=== PATIENT | male | born 1940 | race Caucasian/White ===

== ENCOUNTER 2021-11-27 17:09 | Outpatient (CLI) | payer SELFPAY | END 2021-11-27 17:10 | disposition home or self-care (01) | LOC: AMB 12-04 08:31 | PROVIDERS: Visit Provider Family Medicine | DX: R41.82 Altered mental status, unspecified (principal); R29.810 Facial weakness | CPT/HCPCS: A0425; A0427 ==

== ENCOUNTER 2021-11-27 17:31 | Emergency (ER) | payer SELFPAY ==
--- NOTE | 2021-11-27 17:36 | TELERAD_ITS ---
Patient: JIMENEZ SOLORZANO Facility:?[facility] R[facility] Patient ID:?[id number] Site Patient ID:?[id number] Site :?[id number] Study:?CT-Neck Angio Angio w/ 95cc [id number]-496-7/15/2022 6:01:23 PM Ordering Physician:Bear Devi Final Report: DATE: 11/27/2021 CLINICAL HISTORY: Patient with left-sided weakness. TECHNIQUE: Standard helical CT image acquisition of the neck up to the skull base after bolus intravenous contrast enhancement. Multiplanar reconstructed images performed on a separate workstation. COMPARISON: CT same day. FINDINGS: There is severe narrowing in the proximal left subclavian artery. The origins of the rest of the great vessels from the aortic arch are patent. The origin of the right vertebral artery demonstrates moderate narrowing. The origin of the left vertebral artery demonstrates severe narrowing. The common carotid arteries are patent. There is a severe (82%) stenosis at the origin of the right internal carotid artery by NASCET criteria. This is caused by calcified plaque with a 0.8 mm residual lumen. There is a critical (<95%) stenosis at the origin of the left internal carotid artery by NASCET criteria. This is caused by calcified plaque with a hairline residual lumen. The rest of the cervical segments of the internal carotid arteries are patent up to the skull base. The right vertebral artery is dominant. The cervical segments of the vertebral arteries demonstrate moderate to severe narrowing but are patent up to the skull base. The visualized lung apices are unremarkable. The thyroid gland is unremarkable. The soft tissues of the neck are unremarkable. There are degenerative changes in the cervical spine. IMPRESSION: 1. Critical (<95%) stenosis at the origin of the left internal carotid artery by NASCET criteria caused by calcified plaque with a hairline residual lumen. 2. Severe (82%) stenosis at the origin of the right internal carotid artery by NASCET criteria caused by calcified plaque with a 0.8 mm residual lumen. 3. Severe proximal left subclavian artery narrowing. 4. Severe left and moderate right vertebral artery origin stenosis. Please note that all CT scans at this facility use dose modulation, iterative reconstruction, and/or weight-based dosing when appropriate to reduce radiation dose to as low as reasonably achievable. Dictated by Nuzhat Beckett MD @ 11/27/2021 8:33:09 PM Signed by:?Nuzhat Beckett MD @11/27/2021 8:33:09 PM (Electronic Signature)
--- NOTE | 2021-11-27 17:36 | TELERAD_ITS ---
Patient: JIMENEZ SOLORZANO Facility:?[facility] Patient ID:?[id number] Site Patient ID:?[id number]. Site :?[id number] Study:?CT-Head Angio w/ 95cc [id number]/15/2022 6:01:51 PM Ordering Physician:Bear Devi Final Report: DATE: 11/27/2021 CLINICAL HISTORY: Patient with left-sided weakness. TECHNIQUE: Standard helical CT image acquisition through the intracranial circulation following intravenous administration of contrast material with bolus tracking. Multiplanar reconstructed images were performed and interpreted. COMPARISON: CT same day. FINDINGS: There is no cerebral aneurysm or large vessel occlusion. There is diffuse intracranial atherosclerosis with a moderate to severe stenosis in the left M1 segment, a moderate stenosis in the right vertebral artery and mild stenoses in the carotid siphons bilaterally. IMPRESSION: 1. No cerebral aneurysm or large vessel occlusion. 2. Diffuse intracranial atherosclerosis with a moderate to severe stenosis in the left M1 segment, a moderate stenosis in the right vertebral artery and mild stenoses in the carotid siphons bilaterally. Please note that all CT scans at this facility use dose modulation, iterative reconstruction, and/or weight-based dosing when appropriate to reduce radiation dose to as low as reasonably achievable. Dictated by Nuzhat Beckett MD @ 11/27/2021 8:36:36 PM Signed by:?Nuzhat Beckett MD @11/27/2021 8:36:36 PM (Electronic Signature)
--- NOTE | 2021-11-27 17:36 | CRLHL7_ITS ---
For Patients: As a result of the Century Cures Act, medical imaging exams and procedure reports are released immediately into your electronic medical record. You may view this report before your referring provider. If you have questions, please contact your health care provider. INDICATION: Stroke. Left-sided weakness. COMPARISON: None. TECHNIQUE: Noncontrast CT head. FINDINGS: Moderate generalized volume loss. Patchy low-attenuation change within the white matter consistent with chronic small vessel ischemic changes. 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 No acute intracranial hemorrhage, acute infarct, mass effect, or fracture. No midline shift. No abnormal ventricular dilatation. Normal calvarium skullbase. Visualized paranasal sinuses mastoid air cells are clear. Intracranial carotid artery calcifications. Visualized orbits are unremarkable. IMPRESSION: 1. No acute intracranial abnormality. 2. Moderate generalized volume loss. Chronic deep white matter small vessel ischemic changes. 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 Please note that all CT scans at this facility use dose modulation, iterative reconstruction, and/or weight-based dosing when appropriate to reduce radiation dose to as low as reasonably achievable. Dictated by Bijan Galeas MD @ 11/27/2021 6:07:43 PM (Electronically Signed)
[2021-11-27 18:01] VITALS: BP 121/49; PULSE 60; RESP 16; TEMP 36.2; O2SAT 92; BMI 24.4
[2021-11-27 18:02] LABS: Basophils Absolute Auto 0.02 K/uL (0.00-0.30); Basophils Percent Auto 0.2 % (0.0-3.0); Eosinophils Absolute Auto 0.18 K/uL (0.00-0.50); Eosinophils Percent Auto 2.2 % (0.0-7.0); Hematocrit 39.9 % (37.0-53.0); Hemoglobin* 12.9 gm/dL (13.5-17.5); Immature Granulocytes Abs Auto 0.04 K/uL (0.00-0.30); Lymphocytes Percent Auto 13.2 % (20-44); Mean Corpuscular HGB Conc 32 gm/dL (32-36); Mean Corpuscular Hemoglobin 30 pg (26-34); Mean Corpuscular Volume 94 fL (80-100); Monocytes Percent Auto 10.7 % (0.0-11.0); Neutrophils Percent Auto 73.2 % (42.0-72.0); Platelet Count* 154 K/uL (140-440); RDW Coefficient of Variation % 14.6 % (11.5-15.5); Red Blood Count 4.24 m/uL (4.30-5.90); White Blood Count* 8.26 K/uL (4.50-11.00)
[2021-11-27 18:03] LABS: Lactate* 1.4 mmol/L (0.5-1.9); Slide Review Reflex No
[2021-11-27 18:08] VITALS: PULSE 66
[2021-11-27 18:09] LABS: Troponin, Point-of-Care* 0.03 ng/ml (0.01-0.04)
[2021-11-27 18:18] LABS: Albumin* 3.2 g/dL (3.3-5.0); Chloride* 110 mmol/L (96-114)
[2021-11-27 18:19] LABS: Potassium* 3.6 mmol/L (3.6-5.1); Sodium* 136 mmol/L (135-149)
[2021-11-27 18:20] LABS: Creatinine* 1.5 mg/dL (0.5-1.5); Est. Creatinine Clearance* 40.96; Estimated Glomerular Filt Rate 46 ml/min
[2021-11-27 18:21] LABS: Alkaline Phosphatase* 75 U/L (40-150); Aspartate Amino Transferase* 27 U/L (12-35); Bilirubin Direct* 0.3 mg/dL (0.0-0.5); Bilirubin Total* 0.6 mg/dL (0.1-1.5); Blood Urea Nitrogen* 36 mg/dL (7-30); Carbon Dioxide* 20 mmol/L (20-32); Glucose* 165 mg/dL (60-115); Total Protein* 5.3 g/dL (6.0-8.3)
[2021-11-27 18:22] LABS: Alanine Aminotransferase* 33 U/L (4-50); Calcium* 8.1 mg/dL (8.4-10.6)
[2021-11-27 18:26] VITALS: BP 130/55; PULSE 60; RESP 16; O2SAT 93
[2021-11-27 18:27] LABS: Acetaminophen* < 10.0 ug/mL (10.0-30.0); Salicylate* < 1.0 mg/dL (1.0-10)
--- NOTE | 2021-11-27 18:27 | ED.NURSE ---
see stroke flow sheet for vital and neuro checks
[2021-11-27 18:39] LABS: PCR FLU A Negative PCR FLU A (Negative); PCR FLU B Negative PCR FLU B (Negative)
[2021-11-27 18:42] LABS: SARS PCR* Negative SARS-CoV-2 (Negative)
--- NOTE | 2021-11-27 18:47 | ED.GENADULT ---
HPI - General Adult General Chief complaint: Neuro Symptoms/Altered Deficit Stated complaint: Stroke Symptoms Time Seen by Provider: 11/27/21 17:34 History of Present Illness HPI narrative: 81-year-old male with a history of hypertension, alcohol use disorder, pacemaker placement comes in today after collapsing while he was outside. His last known well was at 5:00 p.m.. EMS found him shortly after collapsing in he was unable to move the right side of his body and was not conversing. Did speak to his daughter who stated that she talked to him yesterday and he was his normal self: He ambulates independently speaks without difficulty. No recent illness that she is aware of. She does state that he is a ?chain smoker?. Unsure of any recent alcohol use. Related Data Home Medications Medication Instructions Recorded Confirmed apixaban 2.5 mg tablet (Eliquis) 2.5 mg PO BID 11/27/21 11/27/21 atorvastatin 10 mg tablet mg 11/27/21 carvedilol 25 mg tablet mg 11/27/21 furosemide 40 mg tablet mg 11/27/21 Allergies Allergy/AdvReac Type Severity Reaction Status Date / Time Unable to Assess Allergy Unverified 11/27/21 18:07 Review of Systems Status of ROS: Reports: unobtainable due to mental status [facility] Medical History CAD (coronary artery disease) Hypertension Kidney failure Social History How often do you have a drink containing alcohol: never AUDIT-C Alcohol total score: 0 Non-prescribed substance use: denies use service: Yes Exam Narrative: Exam Narrative: Well-nourished well-developed patient who is awake. He cannot speak and only has jumbled sounds. Does not appear to be in any respiratory distress. He is able to follow some commands but not many. For example when asked to stick out his tongue he opens his mouth this tongue does not protrude out. When asked him to squeeze my hands he moves his left arm up and down but is not able to squeeze my finger his right arm does not move at all. When I ask him to move his legs neither leg moves. He does have an obvious facial droop with the right side of the mouth drooping. Which does appear to be some right-sided emerald-neglect: Patient is unable to focus on that side and does not comprehend when someone is standing on that side. He is able to look at you make eye contact when her standing on the other side. HEENT: Normocephalic atraumatic. Pupils are equally round reactive to light. Conjunctivae are moist without any icterus noted. Moist mucous membranes. Posterior pharynx is normal. Neck is soft without any lymphadenopathy or thyromegaly. No masses are appreciated. Cardiovascular: Heart is regular rate and rhythm S1 and S2 are present. Lungs: Clear to auscultation bilaterally no wheezes rhonchi or rales are appreciated. Abdomen: Soft and nontender nondistended with normal bowel sounds. Extremities: Bilateral lower extremities are without edema. Normal DP and PT pulses. Skin: Well perfused without any obvious rashes. Const: Vital Signs, click to edit/add: Vital Signs - 24 hr 11/27/21 18:01 11/27/21 18:08 11/27/21 18:26 Temperature 97.2 F L Pulse Rate [Left P ulse Oximeter] 60 66 60 Respiratory Rate 16 16 Blood Pressure [Ri ght Upper Arm] 121/49 L 130/55 L Pulse Oximetry 92 93 Course Course Hospital Course: I met the patient in the ambulance [place] for an exam and Patient went straight to CT immediately upon arrival. Vitals were stable, blood glucose per EMS was 179. Initial head CT was without any evidence of hemorrhage or intracranial bleed. CTA of head and neck followed without significant evidence of obstruction or stenosis. I did speak to the stroke neurologist at [facility] who accepted the patient for transfer. I discussed with the patient's daughter the risks and benefits of TNKase - she wished to proceed. Therefore that was done prior to transfer. Of note, because patient was having difficult time following commands a portion of the NIH scale that I was able to complete his score is already greater than 7. Just when the ambulance pulled to transfer it was noted that the patient was following commands with much more ease any was able to move all 4 extremities whereas before the right side was flaccid. He was still not able to communicate in still had some right-sided facial droop but overall already showing signs of improvement. Vital Signs Vital signs: Initial Vital Signs Temperature 97.2 F L 11/27/21 18:01 Temperature Source Temporal Artery Scan 11/27/21 18:01 Pulse Rate 60 11/27/21 18:01 Respiratory Rate 16 11/27/21 18:01 Blood Pressure 121/49 L 11/27/21 18:01 Blood Pressure Mean 73 11/27/21 18:01 Blood Pressure Position Supine 11/27/21 18:01 Pulse Oximetry 92 11/27/21 18:01 Oxygen Delivery Method 11/27/21 18:01 Vital Signs Temperature 97.2 F L 11/27/21 18:01 Pulse Rate 60 11/27/21 18:01 Respiratory Rate 16 11/27/21 18:01 Blood Pressure 121/49 L 11/27/21 18:01 Pulse Oximetry 92 11/27/21 18:01 Temperature 97.2 F L 11/27/21 18:01 Pulse Rate 60 11/27/21 18:26 Respiratory Rate 16 11/27/21 18:26 Blood Pressure 130/55 L 11/27/21 18:26 Pulse Oximetry 93 11/27/21 18:26 Medical Decision Making MDM Narrative Medical decision making narrative: 81-year-old male presenting with acute stroke, treated with TNKplase, showing improvement. Transferred to [facility] to Stroke Neurology team. Lab Data Lab results reviewed: Yes I reviewed the patient's lab results Labs: Lab Results 11/27/21 11/27/21 11/27/21 Range/Units 17:36 17:50 17:55 WBC 8.26 (4.50-11.00) K/uL RBC 4.24 L (4.30-5.90) m/uL Hgb 12.9 L (13.5-17.5) gm/dL Hct 39.9 (37.0-53.0) % MCV 94 (80-100) fL MCH 30 (26-34) pg MCHC 32 (32-36) gm/dL RDW Coeff of Lola 14.6 (11.5-15.5) % Plt Count 154 (140-440) K/uL Neut % (Auto) 73.2 H (42.0-72.0) % Lymph % (Auto) 13.2 L (20-44) % [place] % (Auto) 10.7 (0.0-11.0) % Eos % (Auto) 2.2 (0.0-7.0) % Baso % (Auto) 0.2 (0.0-3.0) % Neut # (Auto) 6.00 (1.7-7.0) K/uL Lymph # (Auto) 1.10 (0.90-2.90) K/uL [place] # (Auto) 0.90 (0.00-0.90) K/UL Eos # (Auto) 0.18 (0.00-0.50) K/uL Baso # (Auto) 0.02 (0.00-0.30) K/uL Abs Immat Gran (auto) 0.04 (0.00-0.30) K/uL Sodium (135-149) mmol/L Potassium (3.6-5.1) mmol/L Chloride (96-114) mmol/L Carbon Dioxide (20-32) mmol/L BUN (7-30) mg/dL Creatinine (0.5-1.5) mg/dL Estimated Creat Clear Estimated GFR ml/min Glucose (60-115) mg/dL Lactate (0.5-1.9) mmol/L Calcium (8.4-10.6) mg/dL Total Bilirubin (0.1-1.5) mg/dL Direct Bilirubin (0.0-0.5) mg/dL AST (12-35) U/L ALT (4-50) U/L Alkaline Phosphatase (40-150) U/L Total Protein (6.0-8.3) g/dL Albumin (3.3-5.0) g/dL Salicylates (1.0-10) mg/dL Acetaminophen (10.0-30.0) ug/mL SARS-CoV-2 (PCR) Negative SARS-CoV-2 (Negative) Influenza Type A (PCR) Negative PCR FLU A (Negative) Influenza Type B (PCR) Negative PCR FLU B (Negative) POC Troponin I 0.03 (0.01-0.04) ng/ml 11/27/21 11/27/21 Range/Units 17:55 17:55 WBC (4.50-11.00) K/uL RBC (4.30-5.90) m/uL Hgb (13.5-17.5) gm/dL Hct (37.0-53.0) % MCV (80-100) fL MCH (26-34) pg MCHC (32-36) gm/dL RDW Coeff of Lola (11.5-15.5) % Plt Count (140-440) K/uL Neut % (Auto) (42.0-72.0) % Lymph % (Auto) (20-44) % [place] % (Auto) (0.0-11.0) % Eos % (Auto) (0.0-7.0) % Baso % (Auto) (0.0-3.0) % Neut # (Auto) (1.7-7.0) K/uL Lymph # (Auto) (0.90-2.90) K/uL [place] # (Auto) (0.00-0.90) K/UL Eos # (Auto) (0.00-0.50) K/uL Baso # (Auto) (0.00-0.30) K/uL Abs Immat Gran (auto) (0.00-0.30) K/uL Sodium 136 (135-149) mmol/L Potassium 3.6 (3.6-5.1) mmol/L Chloride 110 (96-114) mmol/L Carbon Dioxide 20 (20-32) mmol/L BUN 36 H (7-30) mg/dL Creatinine 1.5 (0.5-1.5) mg/dL Estimated Creat Clear 40.96 Estimated GFR 46 ml/min Glucose 165 H (60-115) mg/dL Lactate 1.4 (0.5-1.9) mmol/L Calcium 8.1 L (8.4-10.6) mg/dL Total Bilirubin 0.6 (0.1-1.5) mg/dL Direct Bilirubin 0.3 (0.0-0.5) mg/dL AST 27 (12-35) U/L ALT 33 (4-50) U/L Alkaline Phosphatase 75 (40-150) U/L Total Protein 5.3 L (6.0-8.3) g/dL Albumin 3.2 L (3.3-5.0) g/dL Salicylates < 1.0 L (1.0-10) mg/dL Acetaminophen < 10.0 L (10.0-30.0) ug/mL SARS-CoV-2 (PCR) (Negative) Influenza Type A (PCR) (Negative) Influenza Type B (PCR) (Negative) POC Troponin I (0.01-0.04) ng/ml Imaging Data CT scan - head: Attestation: I have reviewed the pertinent imaging results. Radiologist's impression: FINDINGS: Moderate generalized volume loss. Patchy low-attenuation change within the white matter consistent with chronic small vessel ischemic changes. 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 No acute intracranial hemorrhage, acute infarct, mass effect, or fracture. No midline shift. No abnormal ventricular dilatation. Normal calvarium skullbase. Visualized paranasal sinuses mastoid air cells are clear. Intracranial carotid artery calcifications. Visualized orbits are unremarkable. IMPRESSION: 1. No acute intracranial abnormality. 2. Moderate generalized volume loss. Chronic deep white matter small vessel ischemic changes. 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 CTA Head/Neck: Attestation: I have reviewed the pertinent imaging results. Radiologist's impression: CTA head: 1. Bilateral carotid siphons and [place] are patent. 2. Intracranial carotid artery calcifications. No high-grade stenosis. 3. Bilateral [place] and right MCA circulations are patent without high-grade stenosis or aneurysm. 4. Moderate, approximate 50 percent stenosis of the distal left M1 MCA segment. However, distal branches of left MCA remain widely patent. 5. Bilateral [employer] circulations are patent without stenosis or aneurysm. 6. Patent codominant vertebrobasilar system. CTA neck: 1. Moderate to severe, 60 70 stent stenosis of the bilateral carotid bulbs. Remainder of the bilateral ICAs are widely patent to the skullbase. No additional stenotic lesions. 2. Patent bilateral vertebral artery circulations from the origin through the vertebrobasilar junction. No high-grade stenosis or dissection. There is calcified atheromatous plaque of the proximal to mid left vertebral artery resulting and mild stenosis. ECG Data Attestation: I personally reviewed and interpreted this ECG as follows: (Ventricular paced rhythm with a heart rate of 65) Critical Care Time Critical Care Time Total Critical Care Time in Minutes: 70 Discharge Plan Discharge Clinical Impression: Cerebrovascular accident Patient Disposition: Xfer [facility] Discharge Location: [facility] Condition: Unchanged Prescriptions: No Action furosemide 40 mg tablet 0RF carvedilol 25 mg tablet 0RF atorvastatin 10 mg tablet 0RF Eliquis 2.5 mg tablet 2.5 mg PO BID 0RF Stand Alone Forms: [employer] Info Instructions
[2021-11-27] MEDS: TENECTEPLASE 5 MG/ML inj 20 MG IVP (18:48)
[2021-11-27] MEDS: SODIUM CHLORIDE 0.9 % (FLUSH) 10 ML SYRINGE IVF (18:49)
[2021-11-27] MEDS: 0.9 % SODIUM CHLORIDE 1000 ml 1,000 ML 125 ML IV (18:51)
[2021-11-27 19:00] VITALS: BP 139/56; PULSE 60; RESP 18; O2SAT 93
[2021-11-27 19:24] LABS: Ethanol* < 0.01 % (0.01-0.03)
--- NOTE | 2021-11-27 19:28 | ED.NURSE ---
report off to [facility], pt transferred to [facility].
== END 2021-11-27 19:29 | disposition short-term general hospital (02) ==
PROVIDERS: Emergency Provider Family Medicine
DX: I63.9 Cerebral infarction, unspecified (principal); G81.01 Flaccid hemiplegia affecting right dominant side
CPT/HCPCS: 36415; 70450; 70496; 70498; 80048; 80076; 80143; 80179; 80306; 81001; 82077; 83605; 84484; 85025; 87502; 87635; 93005; 99285; 99291; J3101; J7030; Q9967

== ENCOUNTER 2021-11-27 19:20 | Outpatient (CLI) | payer MEDICARE, SELFPAY | END 2021-11-27 19:21 | disposition home or self-care (01) | LOC: AMB 12-04 08:40 | PROVIDERS: Visit Provider Family Medicine | DX: R29.810 Facial weakness (principal); R41.82 Altered mental status, unspecified; F80.89 Other developmental disorders of speech and language | CPT/HCPCS: 36415; 70450; 70496; 70498; 80048; 80076; 80143; 80179; 82077; 83605; 84484; 85025; 87502; 87635; 93005; 99285; 99291; A0425; A0427; J3101; J7030; Q9967 ==